=== PATIENT | male | born 1945 | race Caucasian/White ===

== ENCOUNTER → 2017-07-21 12:19 | Outpatient (CLI) | payer MEDICARE, OTHER | END | disposition home or self-care (01) | LOC: D.US 12:19 | DX: E04.1 Nontoxic single thyroid nodule (principal) ==

== ENCOUNTER → 2017-10-26 14:17 | Outpatient (CLI) | payer MEDICARE, OTHER ==
[~2017-10-26 14:17] MED LIST: ACTOS30 MG PO; BAYER CHEWABLE81 MG PO; CRESTOR20 MG PO; FUROSEMIDE20 MG PO; PEPCID20 MG PO; TOPROL XL50 MG PO; VITAMIN D250000 UNIT PO
[2017-11-23 17:19] VITALS: BMI 33.9
== END | disposition home or self-care (01) ==
LOC: D.CT 14:17
DX: M79.81 Nontraumatic hematoma of soft tissue (principal); J90 Pleural effusion, not elsewhere classified

== ENCOUNTER 2017-11-06 21:09 | Inpatient (IN) | payer MEDICARE, OTHER ==
[~2017-11-06] VITALS: Ht 175.3 cm; Wt 101.8 kg
--- NOTE | ~2017-11-06 | DS ---
PATIENT:EDILMA TORRES :41 MEDICAL RECORD: [id number] DISCHARGE SUMMARY ADMISSION DATE: 11/06/17 DISCHARGE DATE: 11/11/17 DATE OF ADMISSION: 11/06/2017. DATE OF DISCHARGE: 11/11/2017. ADMISSION DIAGNOSES: Pleural effusion, status post CABG the prior month, diabetes, shortness of breath. DISCHARGE DIAGNOSES: Pleural effusion improved, status post thoracentesis, shortness of breath, diabetes. HOSPITAL COURSE: The patient was admitted through the Emergency Room with regular progressive worsening shortness of breath after his coronary artery bypass grafting a month prior, found to have mild to moderate pleural effusion with his symptoms. He was admitted, cardiology consulted, pulmonology consulted, thoracic surgery and interventional radiology consulted. The patient had an uneventful hospital course. Underwent thoracentesis by interventional radiology, had improvement in symptoms. The patient cleared for discharge by consultants. Discharged to home in improved condition. Agree with assessments from all consultants. VITAL SIGNS ON DISCHARGE: Temperature 98.1, blood pressure 120/50, heart rate 79, respirations 18, O2 sats 94%. DISCHARGE MEDICATIONS: Per med rec. FOLLOWUP: The patient will follow up in the clinic in the next 10 days. 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 See chart for further details. TRANSINT:[id number] Voice Confirmation ID: [id number] DOCUMENT ID: [id number] EMIGDIO CROWE DO at 1437 CC: [id number] DICTATION DATE: 12/20/17 1421 TECHNICAL LABORATORY ASST: 12/20/17 1428 DIS IN 11/11/17 [place] [id number] [place] [id number]
--- NOTE | ~2017-11-06 | EC ---
PATIENT:UGO TORRES DATE OF SERVICE: 11/06/17 SEX: M MEDICAL RECORD: [id number] DATE OF : 41 LOCATION:[facility] AGE OF PATIENT: 72 ADMISSION DATE: 11/06/17 REFERRING PHYSICIAN: INTERPRETING PHYSICIAN: MIGUELINA HARPER MD ECHOCARDIOGRAM REPORT ECHO CHARGES 4 ECHO COMPLETE Date: 11/07 CLINICAL DIAGNOSIS: SOB, RECENT CABG AND PLEURAL EFF TAP ECHOCARDIOGRAPHIC MEASUREMENTS (adult normal given) AC root (d.<3.7cm) 3.7 cm LV Septum d (<1.2 cm> 1.1 cm Valve Excursion 1.1 cm LV Septum (systole) 1.7 cm Left Atria (s.<4.0cm> 4.5 cm LVPW d(<1.2cm) 1.5 cm RV (d.<2.3cm) 3.8 cm LVPW (sytole) 1.6 cm LV diastole(<5.6CM) 4.4 cm MV E-F(>70mm/sec) cm LV systole 2.2 cm LVOT Diameter 1.5 cm MV exc.(>10mm) 1.9 cm Est.ejection fraction (50-75%) % DOPPLER: LVIT cm/sec A 63.0 cm/sec E 86.0 cm/sec LA cm/sec RVSP 22 mmHg LVOT 120 cm/sec AOP1/2T m/s Asc. Ao 186 cm/sec RVOT 85 cm/sec RA cm/sec PA 160 cm/sec AV Gradient Peak 13.61mmHg AV Mean 7.26 mmHg AV Area 1.1 cm MV Gradient Peak 5.20 mmHg MV Mean 2.03 mmHg MV Area cm COMMENTS: Turntable Worker: Carlos HANSON Sewer: 1 Dr. Harper TAPE# PACS Pericardial Effusion N DATE OF SERVICE: 11/07/2017 FINDINGS: 1. Left ventricular chamber size is within normal limits. Left ventricular systolic function is normal. Overall ejection fraction estimated at 55%. 2. Left atrium is enlarged at 4.5 cm. Right atrium and right ventricle chamber sizes are as well mildly dilated. 3. Valvular structures: Aortic valve demonstrates mild calcific aortic stenosis. The valve area calculates to 1.1 cm-squared with gradient of 13 mm across the valve. The remaining valvular structures have normal structure and ECHOCARDIOGRAM REPORT [id number] UGO TORRES. 4. Doppler interrogation else lim only reveals trace tricuspid regurgitation. No other valvular insufficiency or stenosis. 5. No evidence of pericardial effusion or left ventricular thrombus. TRANSINT:[id number] Voice Confirmation ID: [id number] DOCUMENT ID: [id number] MIGUELINA HARPER MD at 1325 CC: [id number] DICTATION DATE: 11/07/17 1257 ASSISTANT CHILD CARE TEACHER: 11/07/17 1357 ADM IN [place] [id number] [place] [address]
[2017-11-06] MEDS ORDERED: VITAMIN D250000 UNIT PO (21:16)
[2017-11-06] MEDS ORDERED: CRESTOR20 MG PO (21:16)
[2017-11-06] MEDS ORDERED: FUROSEMIDE20 MG PO (21:16)
[2017-11-06] MEDS ORDERED: PEPCID20 MG PO (21:17)
[2017-11-06] MEDS ORDERED: ACTOS30 MG PO (21:17)
[2017-11-06] MEDS ORDERED: BAYER CHEWABLE81 MG PO (21:17)
[2017-11-06] MEDS ORDERED: TOPROL XL50 MG PO (21:17)
[2017-11-06 22:06] LABS: BASOPHILS 0.3 % (0-2); EOSINOPHILS 1.6 % (0-7); HEMATOCRIT 30.3 % (42.0-54.0); HEMOGLOBIN 9.8 g/dL (13.5-17.5); IMMATURE GRANULOCYTES 0.2 % (0-5); LYMPHOCYTES 19.7 % (15-50); MCH 29.5 pg (26.0-34.0); MCHC 32.3 g/dL (31.0-37.0); MCV 91.3 fL (80.0-100.0); MEAN PLATELET VOLUME 9.1 fL (7.4-10.4); MONOCYTES 14.7 % (2-11); NEUTROPHILS 63.5 % (40-80); PLATELET COUNT 415 10x3/uL (130-400); RBC 3.32 10x6/uL (4.20-6.10); RDW 14.1 % (11.5-14.5); WBC 10.2 10x3/uL (4.8-10.8)
[2017-11-06 22:13] LABS: APTT 31.3 SECONDS (22.8-39.4); INR 1.14 (0.85-1.17); PROTIME 14.2 SECONDS (11.6-15.0)
[2017-11-06 22:22] LABS: ALBUMIN 3.2 g/dL (3.4-5.0); ALKALINE PHOSPHATASE 87 U/L (46-116); ALT (SGPT) 13 U/L (10-68); BILIRUBIN - TOTAL 0.34 mg/dL (0.2-1.3); CALC OSMOLALITY 281 mosm/kg (275-300); CALCIUM 8.4 mg/dL (8.5-10.1); CARBON DIOXIDE 31.2 mmol/L (21.0-32.0); CHLORIDE - SERUM 101 mmol/L (98-107); CREATININE - SERUM 1.6 mg/dL (0.6-1.3); GLUCOSE 151 mg/dL (74-106); POTASSIUM - SERUM 4.2 mmol/L (3.5-5.1); PROTEIN - SERUM 7.4 g/dL (6.4-8.2); SODIUM 138 mmol/L (136-145); UREA NITROGEN 21 mg/dL (7-18); eGFR NON AFRICAN AMERICAN 45 mL/min (90-120)
[2017-11-06 22:34] LABS: CKMB 0.6 U/L (0.0-3.6); CREATINE KINASE 55 UL (21-232); PRO BNP 814 pg/mL (0-125)
[2017-11-06 22:36] LABS: TROPONIN-I < 0.017 ng/mL (0.000-0.060)
[2017-11-06 23:16] VITALS: BP 142/65
[2017-11-07] VITALS (16 sets, daily range): BP systolic 114–161; BP diastolic 58–88; BMI 35.0
[2017-11-08 03:58] VITALS: BP 133/59
[2017-11-08 06:29] LABS: BASOPHILS 0 % (0-2); EOSINOPHILS 0 % (0-7); HEMATOCRIT 28.1 % (42.0-54.0); HEMOGLOBIN 8.9 g/dL (13.5-17.5); IMMATURE GRANULOCYTES 0.1 % (0-5); LYMPHOCYTES 9.6 % (15-50); MCH 28.5 pg (26.0-34.0); MCHC 31.7 g/dL (31.0-37.0); MCV 90.1 fL (80.0-100.0); MEAN PLATELET VOLUME 9.2 fL (7.4-10.4); MONOCYTES 7.1 % (2-11); NEUTROPHILS 83.2 % (40-80); PLATELET COUNT 404 10x3/uL (130-400); RBC 3.12 10x6/uL (4.20-6.10); RDW 13.9 % (11.5-14.5)
[2017-11-08 06:57] LABS: ALBUMIN 2.8 g/dL (3.4-5.0); ANION GAP 12.3 mmol/L (8-16); BILIRUBIN - TOTAL 0.28 mg/dL (0.2-1.3); CALCIUM 8.6 mg/dL (8.5-10.1); CREATININE - SERUM 1.8 mg/dL (0.6-1.3); MAGNESIUM - SERUM 2.2 mg/dL (1.8-2.4); PHOSPHOROUS 3.6 mg/dL (2.5-4.9); POTASSIUM - SERUM 4.3 mmol/L (3.5-5.1)
[2017-11-08 08:12] VITALS: BP 169/71
[2017-11-08 14:31] VITALS: BMI 35.0
[2017-11-08 17:26] VITALS: Ht 175.3 cm; Wt 101.8 kg
[2017-11-08 21:29] VITALS: BP 94/61
[2017-11-09 04:22] VITALS: BP 116/62
[2017-11-09 06:03] LABS: BASOPHILS 0.1 % (0-2); EOSINOPHILS 0 % (0-7); HEMATOCRIT 30.1 % (42.0-54.0); HEMOGLOBIN 9.6 g/dL (13.5-17.5); IMMATURE GRANULOCYTES 0.4 % (0-5); LYMPHOCYTES 5.4 % (15-50); MCH 28.7 pg (26.0-34.0); MCHC 31.9 g/dL (31.0-37.0); MCV 89.9 fL (80.0-100.0); MEAN PLATELET VOLUME 9.3 fL (7.4-10.4); MONOCYTES 3.8 % (2-11); NEUTROPHILS 90.3 % (40-80); PLATELET COUNT 441 10x3/uL (130-400); RBC 3.35 10x6/uL (4.20-6.10); RDW 13.9 % (11.5-14.5)
[2017-11-09 06:12] LABS: WBC 14.5 10x3/uL (4.8-10.8)
[2017-11-09 06:15] LABS: APTT 29.8 SECONDS (22.8-39.4); INR 1.06 (0.85-1.17); PROTIME 13.4 SECONDS (11.6-15.0)
[2017-11-09 06:20] LABS: CALCIUM 8.7 mg/dL (8.5-10.1); CARBON DIOXIDE 28.6 mmol/L (21.0-32.0); CREATININE - SERUM 1.9 mg/dL (0.6-1.3); POTASSIUM - SERUM 4.6 mmol/L (3.5-5.1)
[2017-11-09 13:20] LABS: PROTEIN - BODY FLUID 4.6 G/DL
[2017-11-09 13:51] LABS: EOS BF 12 %; NEUT - BF 18 %
[2017-11-09 16:02] VITALS: BP 145/58
[2017-11-09 20:13] VITALS: BP 124/63
[2017-11-10 05:37] LABS: BASOPHILS 0 % (0-2); EOSINOPHILS 0 % (0-7); HEMATOCRIT 27.7 % (42.0-54.0); HEMOGLOBIN 8.9 g/dL (13.5-17.5); IMMATURE GRANULOCYTES 0.4 % (0-5); LYMPHOCYTES 9.1 % (15-50); MCH 28.8 pg (26.0-34.0); MCHC 32.1 g/dL (31.0-37.0); MCV 89.6 fL (80.0-100.0); MEAN PLATELET VOLUME 9.3 fL (7.4-10.4); MONOCYTES 8.6 % (2-11); NEUTROPHILS 81.9 % (40-80); PLATELET COUNT 401 10x3/uL (130-400); RBC 3.09 10x6/uL (4.20-6.10); RDW 13.9 % (11.5-14.5); WBC 12.6 10x3/uL (4.8-10.8)
[2017-11-10 05:55] LABS: INR 1.08 (0.85-1.17); PROTIME 13.6 SECONDS (11.6-15.0)
[2017-11-10 05:56] LABS: APTT 25.4 SECONDS (22.8-39.4)
[2017-11-10 05:57] LABS: ANION GAP 10.4 mmol/L (8-16); CALCIUM 8.4 mg/dL (8.5-10.1); CARBON DIOXIDE 29.3 mmol/L (21.0-32.0); CREATININE - SERUM 1.7 mg/dL (0.6-1.3); POTASSIUM - SERUM 4.7 mmol/L (3.5-5.1)
[2017-11-10 06:05] VITALS: BP 128/58
[2017-11-10 08:57] VITALS: BP 139/57
[2017-11-10 13:15] VITALS: BP 138/67
[2017-11-10 15:31] LABS: FUNGUS STAIN Final report (())
[2017-11-10 16:56] VITALS: BP 125/51
[2017-11-10 19:12] LABS: AFB SPECIMEN PROCESSING Not Indicated (())
[2017-11-10 20:04] VITALS: BP 139/61
[2017-11-11 03:23] LABS: BASOPHILS 0.1 % (0-2); EOSINOPHILS 0.1 % (0-7); HEMATOCRIT 28.5 % (42.0-54.0); HEMOGLOBIN 8.9 g/dL (13.5-17.5); LYMPHOCYTES 11.7 % (15-50); MCH 28.2 pg (26.0-34.0); MCHC 31.2 g/dL (31.0-37.0); MCV 90.2 fL (80.0-100.0); MEAN PLATELET VOLUME 9.3 fL (7.4-10.4); MONOCYTES 8.8 % (2-11); NEUTROPHILS 78.3 % (40-80); PLATELET COUNT 373 10x3/uL (130-400); RBC 3.16 10x6/uL (4.20-6.10); RDW 13.8 % (11.5-14.5)
[2017-11-11 03:32] LABS: ANION GAP 9.2 mmol/L (8-16); CARBON DIOXIDE 30.3 mmol/L (21.0-32.0); CREATININE - SERUM 1.8 mg/dL (0.6-1.3); POTASSIUM - SERUM 4.5 mmol/L (3.5-5.1)
[2017-11-11 04:10] VITALS: BP 120/50
[2017-11-11 09:31] VITALS: BP 128/65
[2017-11-11 16:44] VITALS: BP 135/85
[2017-11-11 19:13] LABS: IMMUNOGLOBULIN E 318 IU/mL (0-100)
[2017-12-07 07:32] LABS: FUNGUS MYCOLOGY CULTURE Final report (())
[2017-12-31 11:21] LABS: ACID FAST CULTURE Negative (()); ACID FAST SMEAR Negative (())
== END 2017-11-11 17:46 | disposition home health service (06) | DRG 177 ==
LOC: D.ER 21:09 → D.ICU 23:46 → D.MS 23:46
PROVIDERS: Emergency Medicine; Family Medicine; Internal Medicine Pulmonary Disease; Radiology Diagnostic Radiology; Radiology Vascular & Interventional Radiology
PROC: 0W9B3ZZ Drainage of Left Pleural Cavity, Percutaneous Approach (ICD-10-PCS; principal; 2017-11-09 09:20)
DX: J15.6 Pneumonia due to other Gram-negative bacteria (principal); J96.01 Acute respiratory failure with hypoxia; I50.21 Acute systolic (congestive) heart failure; I50.31 Acute diastolic (congestive) heart failure; J44.0 Chronic obstructive pulmonary disease with (acute) lower respiratory infection; J44.1 Chronic obstructive pulmonary disease with (acute) exacerbation; I13.0 Hypertensive heart and chronic kidney disease with heart failure and stage 1 through stage 4 chronic kidney disease, or unspecified chronic kidney disease; N18.4 Chronic kidney disease, stage 4 (severe); N17.9 Acute kidney failure, unspecified; J90 Pleural effusion, not elsewhere classified; J98.11 Atelectasis; J95.863 Postprocedural seroma of a respiratory system organ or structure following other procedure; I97.631 Postprocedural hematoma of a circulatory system organ or structure following cardiac bypass; T81.4XXA Infection following a procedure, initial encounter; E11.21 Type 2 diabetes mellitus with diabetic nephropathy; E11.22 Type 2 diabetes mellitus with diabetic chronic kidney disease; E78.5 Hyperlipidemia, unspecified; G47.33 Obstructive sleep apnea (adult) (pediatric); I73.9 Peripheral vascular disease, unspecified; I71.2 Thoracic aortic aneurysm, without rupture; K21.9 Gastro-esophageal reflux disease without esophagitis; Z95.1 Presence of aortocoronary bypass graft; Y95 Nosocomial condition

== ENCOUNTER → 2017-11-19 09:49 | Outpatient (CLI) | payer MEDICARE, OTHER ==
[2017-11-08 17:26] VITALS: BMI 35.0
== END | disposition home or self-care (01) ==
LOC: D.LAB 09:49
DX: I25.10 Atherosclerotic heart disease of native coronary artery without angina pectoris (principal); Z95.1 Presence of aortocoronary bypass graft; J90 Pleural effusion, not elsewhere classified

== ENCOUNTER 2017-11-23 17:13 | Emergency (ER) | payer MEDICARE, OTHER ==
[~2017-11-23] VITALS: Ht 175.3 cm; Wt 104.1 kg
[2017-11-23 17:19] VITALS: Ht 175.3 cm; Wt 104.1 kg
[2017-11-23 19:21] LABS: BASOPHILS 0.1 % (0-2); EOSINOPHILS 0.7 % (0-7); HEMATOCRIT 30.6 % (42.0-54.0); HEMOGLOBIN 9.9 g/dL (13.5-17.5); IMMATURE GRANULOCYTES 0.2 % (0-5); LYMPHOCYTES 11.3 % (15-50); MCH 28.9 pg (26.0-34.0); MCHC 32.4 g/dL (31.0-37.0); MCV 89.2 fL (80.0-100.0); MEAN PLATELET VOLUME 9.4 fL (7.4-10.4); MONOCYTES 8.8 % (2-11); NEUTROPHILS 78.9 % (40-80); RBC 3.43 10x6/uL (4.20-6.10); RDW 14.4 % (11.5-14.5)
[2017-11-23 19:27] LABS: PLATELET COUNT 268 10x3/uL (130-400)
[2017-11-23 19:39] LABS: APTT 30.6 SECONDS (22.8-39.4); INR 1.09 (0.85-1.17); PROTIME 13.7 SECONDS (11.6-15.0)
[2017-11-23 19:40] LABS: D-DIMER-QUANTITATIVE 2.22 ug/mLFEU (0.20-0.54)
[2017-11-23 19:50] LABS: ALBUMIN 3.5 g/dL (3.4-5.0); ALKALINE PHOSPHATASE 86 U/L (46-116); ALT (SGPT) 16 U/L (10-68); BILIRUBIN - TOTAL 0.36 mg/dL (0.2-1.3); CALC OSMOLALITY 281 mosm/kg (275-300); CALCIUM 9.2 mg/dL (8.5-10.1); CARBON DIOXIDE 31.9 mmol/L (21.0-32.0); CHLORIDE - SERUM 99 mmol/L (98-107); CREATININE - SERUM 1.8 mg/dL (0.6-1.3); POTASSIUM - SERUM 4.5 mmol/L (3.5-5.1); PROTEIN - SERUM 7.9 g/dL (6.4-8.2); SODIUM 136 mmol/L (136-145); UREA NITROGEN 29 mg/dL (7-18); eGFR NON AFRICAN AMERICAN 39 mL/min (90-120)
[2017-11-23 19:52] LABS: GLUCOSE 179 mg/dL (74-106)
[2017-11-23 20:00] LABS: CKMB 0.5 U/L (0.0-3.6); CREATINE KINASE 46 UL (21-232); PRO BNP 679 pg/mL (0-125); TROPONIN-I < 0.017 ng/mL (0.000-0.060)
[2017-11-24 01:13] VITALS: BP 144/79
== END 2017-11-24 01:18 | disposition home or self-care (01) ==
LOC: D.ER 17:13
PROVIDERS: Family Medicine
DX: R07.81 Pleurodynia (principal); Z87.09 Personal history of other diseases of the respiratory system; E11.9 Type 2 diabetes mellitus without complications; E07.9 Disorder of thyroid, unspecified; I10 Essential (primary) hypertension; I50.9 Heart failure, unspecified; Z85.828 Personal history of other malignant neoplasm of skin

== ENCOUNTER → 2018-02-24 09:28 | Outpatient (CLI) | payer MEDICARE, OTHER ==
[2017-11-23 17:19] VITALS: BMI 33.9
== END | disposition home or self-care (01) ==
LOC: D.RAD 01-26 15:45 → D.RT 09:28
DX: J45.909 Unspecified asthma, uncomplicated (principal); J90 Pleural effusion, not elsewhere classified

== ENCOUNTER → 2018-04-01 10:36 | Outpatient (CLI) | payer MEDICARE, OTHER ==
[2017-11-23 17:19] VITALS: BMI 33.9
== END | disposition home or self-care (01) ==
LOC: D.NM 10:36
DX: R79.89 Other specified abnormal findings of blood chemistry (principal)